=== PATIENT | female | born 1965 | race Caucasian/White ===

== ENCOUNTER 2025-09-25 23:04 | Emergency (ER) | payer OTHER, SELFPAY ==
[2025-09-25 23:15] VITALS: PULSE 73; O2SAT 96
--- NOTE | 2025-09-25 23:18 | DI.CT.S_ITS ---
PROCEDURE: CT ABDOMEN PELVIS W CON INDICATIONS: RLQ>RUQ abd pain, ? flank pain x 48 hours TECHNIQUE: After the administration of intravenous contrast, axial sections acquired from the lung bases to the pubic symphysis. Coronal and sagittal reformats were performed. For radiation dose reduction, the following was used: automated exposure control, adjustment of mA and/or kV according to patient size. COMPARISON: None. FINDINGS: Image quality: Diagnostic. Lower Chest: Small hiatal hernia. ABDOMEN: Liver: No solid mass. Gallbladder: No radiopaque gallstones or wall thickening. Biliary ducts: No biliary dilation. Pancreas: No ductal dilation. Spleen: Size is within normal limits. Adrenal Glands: No adrenal nodules. Kidneys and Ureters: No hydronephrosis. No solid mass. No complex renal cystic lesion which requires follow up. Stomach and Bowel: Colonic diverticulosis with prominent inflammation and wall thickening of the distal sigmoid centered around a diverticulum. No evidence of perforation or peridiverticular abscess. Normal appendix. The remaining small and large bowel is unremarkable. Peritoneum: No abnormal intraperitoneal fluid. No free air. Ventral Wall: No significant ventral hernia. Abdominal Nodes: No retroperitoneal or mesenteric adenopathy by size criteria. Vessels: Aorta and inferior vena cava are normal in size. PELVIS: Pelvic Organs: Prominent contour of the uterus, suggestive of fibroids. Bladder: No bladder wall thickening, accounting for underdistention. Pelvic Nodes: No enlarged lymph nodes. Miscellaneous: No inguinal hernias are seen. Bones: No aggressive osseous abnormality. IMPRESSION: Acute uncomplicated sigmoid diverticulitis . Dictated by: Des Orta M.D. on 09/26/2025 at 2:25 Approved by: Des Orta M.D. on 09/26/2025 at 2:27
--- NOTE | 2025-09-25 23:18 | DI.CT.S_ITS ---
PROCEDURE: CT HEAD/BRAIN WO CON INDICATIONS: syncope TECHNIQUE: Noncontrast 4.5 mm thick angled axial sections acquired from the foramen magnum to the vertex, with coronal and sagittal reformats. For radiation dose reduction, the following was used: automated exposure control, adjustment of mA and/or kV according to patient size. COMPARISON: None. FINDINGS: Image quality: Diagnostic. CSF spaces: Basal cisterns are patent. No extra-axial fluid collections. Ventricles are normal in size and shape. Brain: No midline shift. No intracranial mass effect or hemorrhage. Ivey- white matter interface is normal. Skull and face: Calvarium and visualized facial bones are intact, without suspicious lesions. Sinuses: Mild left maxillary sinus mucosal thickening. Visualized sinuses and mastoids are otherwise clear. IMPRESSION: No acute intracranial pathology. Dictated by: Des Orta M.D. on 09/26/2025 at 0:57 Approved by: Des Orta M.D. on 09/26/2025 at 0:58
--- NOTE | 2025-09-25 23:18 | EKG_ITS ---
[id number] [address] Test Date: 2025-09-25 Pat Name: Haley Ashley Department: Room: Gender: Female Inbound Sales Advisor: ARA : [id number] Requested By: Order Number: [id number] Reading MD: Hardy Carney Measurements Intervals [place] Rate: 67 P: 41 MI: 166 QRS: -43 QRSD: 86 T: 32 QT: 390 QTc: 412 Interpretive Statements Normal sinus rhythm Left axis deviation Low voltage QRS Electronically Signed On 09-26-2025 14:39:46 PST by Hardy Carney
--- NOTE | 2025-09-25 23:20 | ED.ABDPAIN ---
HPI - Abdominal Pain General Chief Complaint: Abdominal Pain Stated Complaint: RLQ pain Time Seen by Provider: 09/25/25 23:18 Source: patient, EMS, RN notes reviewed and old records reviewed Mode of arrival: EMS Limitations: no limitations History of Present Illness HPI narrative: 60-year-old female history of dyslipidemia, aspirin 81 mg daily presents with complaint of right-sided abdominal pain that is started 2 days ago which has been persistent. She noted some left lower back pain that radiated over towards the right side that improved and then developed increasing right-sided pain which she indicates is lower. Patient states no fevers. She had nausea and vomiting this evening. She did not know any exacerbating or alleviating factors. She states she has been mildly constipated but believes she had a bowel movement in the last 12 hours. She denies any black or bloody stools. No vaginal bleeding or discharge. No dysuria, urgency or frequency. Patient notes that she was sitting on the toilet to see if that would improve her symptoms when she got up to wash her hands in the sink she felt very lightheaded and then had a brief syncopal episode. This is reported to be heard by her who found her shortly thereafter and she returned to normal mentation. EMS notes a glucose of 107 in the field. Patient has had multiple orthopedic surgeries and cervical fusion but denies any prior cardiac or intra-abdominal surgeries. She states she takes sertraline, atorvastatin aspirin 81 mg daily. Does not report any drug allergies. 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 Related Data Previous Rx's ?Medication ?Instructions ?Recorded amoxicillin 875 mg-potassium 1 tab PO BID #20 tabs 09/26/25 clavulanate 125 mg tablet hydrocodone 5 mg-acetaminophen 325 1 tab PO Q6H PRN pain #7 tabs 09/26/25 mg tablet Allergies Allergy/AdvReac Type Severity Reaction Status Date / Time No Known Drug Allergies Allergy Verified 09/25/25 23:21 Review of Systems Review of Systems ROS Unobtainable: All systems reviewed & are unremarkable except as noted in HPI and below Patient History Social History Smoking Status: Never smoker Exam Narrative Exam Narrative: GEN: well nourished, well appearing female, alert and oriented x 3, patient appears to be in mild distress. HEENT: Atraumatic, pupils are equal round reactive to light, extraocular movements are intact, nares are clear, TMs are clear with no fluid, there is no conjunctival pallor. Throat is clear without any exudates, erythema, tonsillar enlargement or uvular deviation, No cervical vertebral tenderness HEART: Regular rate and rhythm without murmur, clicks, rubs. No carotid bruits, pulses are equal in upper and lower extremities LUNGS:Lungs clear to auscultation, no wheezes, rales, crackles, chest moves symmetrically ABD:bowel sounds normal, soft, patient has a right-sided upper and lower tenderness in his greatest at right lower quadrant. no guarding, rebound, rigidity, no masses noted, no hepatosplenomegaly :No CVA tenderness MSCL: Non-tender, no muscle atrophy, muscles strength 5/5 upper and lower extremities, full range of motion. NEURO:CN 2-12 intact, sensation normal Initial Vital Signs Initial Vital Signs: Vital Signs Pulse Rate 73 09/25/25 23:15 Pulse Oximetry 96 09/25/25 23:15 Oxygen Delivery Method Room Air 09/25/25 23:15 Course Orders Ordered: ED Orders 09/25/25 23:18 CT abdomen pelvis w con Stat CT head/brain wo con Stat EKG-12 Lead Stat 09/25/25 23:30 Complete Blood Count AUTO DIFF Stat Comprehensive Metabolic Panel Stat Lipase Stat Trop I [Troponin I] Stat 09/26/25 00:03 CT cervical spine wo con Stat 09/26/25 00:53 Urine Culture Stat Urine Microscopic Stat Discontinued Medications Hydrocodone Bitart/Acetaminophen (Hydrocodone/Acet 5/325 Prepack) 1 bottle MISC DIRECTED ONE Stop: 09/26/25 02:38 Last Admin: 09/26/25 02:42 Dose: 1 bottle Amoxicillin/Clavulanate Potassium (Amoxicillin/Clav 875/125 Mg) 1 tab PO NOW ONE Stop: 09/26/25 02:34 Last Admin: 09/26/25 02:42 Dose: 1 tab Sodium Chloride (Normal Saline 0.9%) 1,000 mls @ 1,000 mls/hr IV BOLUS ONE Stop: 09/26/25 00:17 Last Infusion: 09/26/25 00:37 Dose: Infused Documented By: Admin: 09/25/25 23:36 Dose: 1,000 mls/hr Documented By: LETTY Piperacillin Sod/Tazobactam (Sod 4.5 gm/ Sodium Chloride) 100 mls @ 200 mls/hr IV NOW ONE Stop: 09/26/25 02:26 Last Admin: 09/26/25 02:38 Dose: Not Given Ketorolac Tromethamine (Ketorolac 30 Mg/Ml Vial) 15 mg IV NOW ONE Stop: 09/26/25 01:26 Last Admin: 09/26/25 01:29 Dose: 15 mg Documented By: LETTY Metoclopramide HCl (Metoclopramide 10 Mg/2 Ml Inj) 10 mg IV NOW ONE Stop: 09/26/25 00:39 Last Admin: 09/26/25 00:41 Dose: 10 mg Documented By: LETTY Morphine Sulfate (Morphine 4 Mg/Ml Inj) 4 mg IV NOW ONE Stop: 09/26/25 02:26 Last Admin: 09/26/25 02:33 Dose: 4 mg Ondansetron HCl (Ondansetron 4 Mg Odt Prepack) 1 bottle MISC DIRECTED ONE Stop: 09/26/25 02:38 Last Admin: 09/26/25 02:42 Dose: 1 bottle Vital Signs Vital signs: Vital Signs - 8 hr 09/25/25 23:15 09/25/25 23:22 09/25/25 23:30 Temperature 98.8 F Pulse Rate 73 74 Respiratory Rate 18 Blood Pressure 127/56 L 123/60 Pulse Oximetry 96 94 Oxygen Delivery Method Room Air Room Air 09/25/25 23:30 09/26/25 00:00 09/26/25 00:00 Temperature Pulse Rate 67 65 Respiratory Rate 11 L 22 Blood Pressure 126/63 Pulse Oximetry 96 96 Oxygen Delivery Method Room Air Room Air 09/26/25 00:35 09/26/25 00:55 09/26/25 00:55 Temperature Pulse Rate 74 76 Respiratory Rate 10 L Blood Pressure 133/60 Pulse Oximetry 94 95 Oxygen Delivery Method Room Air Room Air 09/26/25 01:00 09/26/25 01:00 09/26/25 01:30 Temperature Pulse Rate 69 Respiratory Rate 7 L Blood Pressure 124/59 L 110/52 L Pulse Oximetry 94 Oxygen Delivery Method Room Air 09/26/25 01:30 09/26/25 02:00 09/26/25 02:00 Temperature Pulse Rate 67 71 Respiratory Rate 20 21 Blood Pressure 110/55 L Pulse Oximetry 93 94 Oxygen Delivery Method Room Air Room Air 09/26/25 02:30 09/26/25 02:30 Temperature Pulse Rate 64 Respiratory Rate 24 Blood Pressure 108/53 L Pulse Oximetry 94 Oxygen Delivery Method MDM - Abdominal Pain Lab Data 09/25/25 23:30 09/25/25 23:30 Labs: Lab Results 09/25/25 09/26/25 Range/Units 23:30 00:53 WBC 10.9 (4.5-11.0) X10^3/uL RBC 4.17 (4.0-5.2) X10^6/uL Hgb 13.0 (12.0-16.0) g/dL Hct 37.7 (36-46) % MCV 90.5 (80-100) fL MCH 31.3 (26-34) PG MCHC 34.6 (30-36) % RDW 13.2 (11.6-14.8) % Plt Count 188 (150-400) X10^3/uL Neut % (Auto) 78.4 H (50-75) % Lymph % (Auto) 10.3 L (25-40) % [place] % (Auto) 10.6 (3-14) % Eos % (Auto) 0.3 L (2-4) % Baso % (Auto) 0.4 (0-2) % Neut # (Auto) 8600 H (2993-9195) /uL Lymph # (Auto) 1100 (5457-0778) /uL [place] # (Auto) 1200 H (0-900) /uL Eos # (Auto) 0 (0-450) /uL Baso # (Auto) 0 (0-100) /uL Sodium 133 L (137-145) mmol/L Potassium 4.2 (3.4-5.1) mmol/L Chloride 101 (98-107) mmol/L Carbon Dioxide 27 (22-32) mmol/L BUN 18 H (7-17) mg/dL Creatinine 0.94 (0.52-1.04) mg/dL Estimated GFR > 60 (>60) mL/min BUN/Creatinine Ratio 19.1 (6-22) Glucose 104 H (70-99) mg/dL Calcium 9.5 (8.4-10.2) mg/dL Total Bilirubin 0.8 (0.2-1.3) mg/dL AST 25 (14-36) IU/L ALT 23 (<35) IU/L Alkaline Phosphatase 94 (38-126) U/L Troponin I < 0.012 (0.01-0.034) ng/mL Total Protein 7.1 (6.3-8.2) g/dL Albumin 4.0 (3.5-5.0) g/dL Globulin 3.1 (1.7-4.1) g/dL Albumin/Globulin Ratio 1.3 (1.0-2.8) Lipase 233 (23-300) U/L Urine RBC None seen (0-5/HPF) Urine WBC 1-5/hpf (0-5/HPF) Ur Squamous Epith Cells 1-5 /hpf (0-5/HPF) Urine Bacteria Few (2-10) H (None) Vol Urine Centrifuged 10ml (spun) Point of care testing: Urine Dip Bedside Urine Glucose Negative Bedside Urine Bilirubin - Negative Bedside Urine Ketone - Negative Urine Specific [place] 1.010 Bedside Urine Occult Blood - Negative Bedside Urine pH 6.0 Bedside Urine Protein - Negative Bedside Urine Urobilinogen - Negative Bedside Urine Nitrite - Negative Bedside Urine Leukocytes + 70 Esterase MDM Narrative Medical decision making narrative: Labs normal white count, hemoglobin and platelets predominance of neutrophils at 78%. Labs shows sodium 133 BUN 18 otherwise normal electrolytes, creatinine is 0.94, LFTs are normal normal lipase troponin less than 0.012. EKG, sinus rhythm rate of 67 [place] 166 QRS 86, QTC is 412, no acute ST-elevation or depression. No prior for comparison. urine shows leukocyte esterase no nitrates. No red cells 1-5 white cells 1-[address] abdomen pelvis shows acute uncomplicated sigmoid diverticulitis. CT head shows no acute intracranial pathology CT cervical spine, no displaced fracture or traumatic subluxation. Patient received fluids, reglan and toradol, morphine and oral antibiotic. On rechecked patient's pain is improved but still somewhat uncomfortable, we will give another dose of pain medication. Still awaiting CT cervical spine and CT abdomen and pelvis there was delay secondary to technical issues. Patient is found to have uncomplicated sigmoid diverticulitis no signs of abscess or fluid collections or perforation. Patient has had pain but otherwise has felt improved here in the department. Patient feels comfortable with discharge home on oral antibiotics we will give a short course of pain medication as well. Discussed return precautions all questions answered. Discharge Plan Departure Patient Disposition: Home Clinical Impression: Diverticulitis Instructions: DI for Diverticulitis Activity Restrictions/Additional Instructions: Your workup today does show sigmoid diverticulitis. This is typically treated with antibiotics. Take oral antibiotics until completed. Prescription printed and included in your paperwork. You can take acetaminophen up to a 1000 mg every 6 hours and/or ibuprofen up to 600 mg every 6 hours as needed for pain if inadequate you can take [place] 1-2 tablets every 6 hours as needed. This medication can make you sleepy do not drive, perform hazardous activities or make any major decisions while taking it. This medication will make you constipated please take a stool softener once to twice daily until stools are soft and regular. There is also prepack of Zofran, you can take 1 tablet every 6 hours as needed for nausea. Please return if you develop fevers, worsening abdominal back or flank pain, vomiting, lightheadedness or passing out, new black or bloody stools or other new or concerning changes. Prescriptions: New amoxicillin-pot clavulanate 875-125 mg tablet 1 tab PO BID Qty: 20 0RF hydrocodone-acetaminophen 5-325 mg tablet 1 tab PO Q6H PRN (Reason: pain) Qty: 7 0RF Stand Alone Forms: Patient Portal/API
[2025-09-25 23:22] VITALS: BP 127/56; PULSE 74; RESP 18; TEMP 37.1; O2SAT 94; BMI 38.3
[2025-09-25 23:30] VITALS: BP 123/60; PULSE 67; RESP 11; O2SAT 96
[2025-09-25] MEDS: SODIUM CHLORIDE 0.9% 1,000 ML 1000 ML IV (23:36)
[2025-09-25 23:43] LABS: Add Manual Diff / Slide Review NO; Hematocrit 37.7 % (36-46); Hemoglobin 13.0 g/dL (12.0-16.0); Lymphocytes Absolute Auto 1100 /uL (1100-4500); Mean Corpuscular HGB Conc 34.6 % (30-36); Mean Corpuscular Hemoglobin 31.3 PG (26-34); Mean Corpuscular Volume 90.5 fL (80-100); Platelet Count 188 X10^3/uL (150-400)
[2025-09-25 23:57] LABS: Alanine Aminotransferase 23 IU/L (<35); Albumin 4.0 g/dL (3.5-5.0); Albumin Globulin Ratio 1.3 (1.0-2.8); Alkaline Phosphatase 94 U/L (38-126); Blood Urea Nitrogen 18 mg/dL (7-17); Calcium 9.5 mg/dL (8.4-10.2); Carbon Dioxide 27 mmol/L (22-32); Chloride 101 mmol/L (98-107); Estimated Glomerular Filt Rate > 60 mL/min (>60); Globulin 3.1 g/dL (1.7-4.1); Glucose 104 mg/dL (70-99); HEMOLYSIS < 15 (0-50); Lipase 233 U/L (23-300); Potassium 4.2 mmol/L (3.4-5.1); Sodium 133 mmol/L (137-145); Total Protein 7.1 g/dL (6.3-8.2)
[2025-09-26] VITALS (7 sets, daily range): BP systolic 108–133; BP diastolic 52–63; PULSE 64–76; RESP 7–24; O2SAT 93–96
--- NOTE | 2025-09-26 00:03 | DI.CT.S_ITS ---
PROCEDURE: CT CERVICAL SPINE WO CON INDICATIONS: neck pain, syncope, hit head TECHNIQUE: Noncontrast 3 mm thick sections acquired from the skull base to the T4 level. Sagittal and coronal reformats were then constructed. For radiation dose reduction, the following was used: automated exposure control, adjustment of mA and/or kV according to patient size. COMPARISON: None. FINDINGS: Image quality: Excellent. Bones: Anterior spinal fixation at C5 through C7. No fractures or dislocations. Visualized superior ribs are intact. Degenerative changes of the cervical spine without high-grade osseous spinal canal narrowing. Soft tissues: Prevertebral soft tissues are normal in thickness. No paravertebral hematomas. No apical pneumothoraces. IMPRESSION: No displaced fracture or traumatic subluxation. Dictated by: Des Orta M.D. on 09/26/2025 at 2:21 Approved by: Des Orta M.D. on 09/26/2025 at 2:23
[2025-09-26 00:09] LABS: Troponin I < 0.012 ng/mL (0.01-0.034)
--- NOTE | 2025-09-26 00:18 | PC.NURSE ---
Pt to imaging via ED stretcher with certified medical technician assistant
[2025-09-26] MEDS: METOCLOPRAMIDE 10 MG/2 ML INJ IV (00:41)
--- NOTE | 2025-09-26 00:50 | PC.NURSE ---
Pt ambulatory to restroom without difficulty or assistance
[2025-09-26] MEDS: KETOROLAC 30 MG/ML VIAL 15 MG IV (01:29)
[2025-09-26] MEDS: MORPHINE 4 MG/ML INJ IV (02:33)
[2025-09-26] MEDS: ONDANSETRON 4 MG ODT PREPACK 1 BOTTLE MISC (02:42)
[2025-09-26] MEDS: AMOXICILLIN/CLAV 875/125 MG 1 TAB PO (02:42)
== END 2025-09-26 02:56 | disposition home or self-care (01) ==
PROVIDERS: Emergency Provider Emergency Medicine
DX: K57.32 Diverticulitis of large intestine without perforation or abscess without bleeding (principal); R55 Syncope and collapse; E78.5 Hyperlipidemia, unspecified
CPT/HCPCS: 70450; 72125; 74177; 80053; 81003; 81015; 83690; 84484; 85025; 87086; 93005; 96361; 96374; 96375; 99284; J1885; J2272; J2765; J7030; Q9967